=== PATIENT | male | born 1955 | race Caucasian/White ===

== ENCOUNTER 2020-03-01 07:29 | Outpatient (CLI) | payer MEDICARE, OTHER | END 2020-03-01 23:59 | disposition home or self-care (01) | LOC: LAB 07:29 | PROVIDERS: ATTEND Surgery | DX: Z01.812 Encounter for preprocedural laboratory examination (principal); Z11.59 Encounter for screening for other viral diseases ==

== ENCOUNTER 2020-03-06 06:46 | Day surgery (SDC) | payer MEDICARE, OTHER ==
[2020-03-06] MEDS ORDERED: PROPOFOL 200 MG/20 ML BOTTLE IV ONE (06:47)
[2020-03-06] MEDS ORDERED: EPHEDRINE SULFATE 50 MG/ML AMPUL IM ONE (06:47)
[2020-03-06] MEDS ORDERED: ETOMIDATE 20 MG/10 ML VIAL IV ONE (06:47)
[2020-03-06] MEDS ORDERED: NEOSTIGMINE METHYLSULFATE 10 MG/10 ML VIAL IM ONE (06:47)
[2020-03-06] MEDS ORDERED: LIDOCAINE-MPF 2% 5 ML VIAL IJ ONE (06:47)
[2020-03-06] MEDS ORDERED: IV NORMAL SALINE 1000 ML BAG IV ONE (06:47)
[2020-03-06 08:15] LABS: BASOPHILS # (AUTO) 0.1 K/uL (0.0-8.0); BASOPHILS % (AUTO) 0.9 % (0.0-2.0); EOSINOPHILS # (AUTO) 0.1 K/uL (0.0-0.7); EOSINOPHILS % (AUTO) 0.8 % (0.0-7.0); HEMATOCRIT 40.2 % (36.7-47.1); LYMPHOCYTES # (AUTO) 1.7 K/uL (20.0-40.0); LYMPHOCYTES % (AUTO) 26.5 % (20.5-51.5); MEAN CORPUSCULAR HEMOGLOBIN 30.3 uug (23.8-33.4); MEAN CORPUSCULAR HGB CONC 35 g/dL (32.5-36.3); MEAN CORPUSCULAR VOLUME 87.1 fL (73.0-96.2); MONOCYTES # (AUTO) 0.7 K/uL (2.0-10.0); MONOCYTES % (AUTO) 10.5 % (0.0-11.0); NEUTROPHILS % (AUTO) 61.3 % (38.5-71.5); PLATELET COUNT (AUTO) 240 K/uL (152-348); RED BLOOD CELL COUNT(AUTO) 4.62 MIL/uL (4.06-5.63); WHITE BLOOD COUNT (AUTO) 6.5 K/uL (3.6-10.2)
[2020-03-06 08:24] LABS: BILIRUBIN,TOTAL 1.9 mg/dL (0.2-1.0); CREATININE 1.6 mg/dL (0.6-1.3); POTASSIUM 4.6 mmol/L (3.5-5.1); TOTAL PROTEIN, SERUM 8.2 g/dL (6.4-8.2)
[2020-03-06] MEDS ORDERED: MIDAZOLAM HCL 2 MG/2 ML VIAL ONE (09:20)
== END 2020-03-06 11:30 | disposition home or self-care (01) ==
LOC: DS 06:46
PROVIDERS: ATTEND Surgery
DX: R19.4 Change in bowel habit (principal); R13.10 Dysphagia, unspecified; R10.13 Epigastric pain; K44.9 Diaphragmatic hernia without obstruction or gangrene; K21.0 Gastro-esophageal reflux disease with esophagitis; K25.9 Gastric ulcer, unspecified as acute or chronic, without hemorrhage or perforation; K31.89 Other diseases of stomach and duodenum; I10 Essential (primary) hypertension; E78.00 Pure hypercholesterolemia, unspecified; E11.9 Type 2 diabetes mellitus without complications; Z79.899 Other long term (current) drug therapy; Z98.890 Other specified postprocedural states; Z80.0 Family history of malignant neoplasm of digestive organs
CPT/HCPCS: 43239; 45378; 71045; 80053; 82962; 85025; 85730; J2250; 36415; 93005; A4217; A4663; J2710; J3490; J7030